=== PATIENT | female | born 1970 | race Caucasian/White ===

== ENCOUNTER 2016-10-10 03:42 | Emergency (ER) | payer OTHER ==
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
--- NOTE | 2016-10-10 04:56 | ED ORDER SUMMARY ---
..... Patient: TRACEY LACY OrderSheet [facility] VisitID: [id number] [place] [address] 46y, F Registration Date/Time: 10/10/2016 ORDER SHEET Weight: 68.0 kg (stated) Allergies: No Known Drug Allergy GENERAL ORDERS: UA-Culture if indicated Urgent (03:54 10/10/2016 Sheila ROMERO) (Ack 3:57 ALawrence ER Tech1) (4:36 ALawrence ER Tech1) Urine Urgent (03:54 10/10/2016 Sheila ROMERO) (Ack 3:57 ALawrence ER Tech1) (4:36 ALawrence ER Tech1) Urine Drug Screen Urgent (03:54 10/10/2016 Sheila ROMERO) (Ack 3:57 ALawrence ER Tech1) (4:36 ALawrence ER Tech1) CBC w Diff Urgent (03:54 10/10/2016 Sheila ROMERO) (Ack 3:57 ALawrence ER Tech1) (4:11 CHernandez R.N.) CMP Urgent (03:54 10/10/2016 Sheila ROMERO) (Ack 3:57 ALawrence ER Tech1) (4:11 CHernandez R.N.) Ethyl Alcohol Urgent (03:54 10/10/2016 Sheila ROMERO) (Ack 3:57 ALawrence ER Tech1) (4:28 HSoule) CT Head wo Cont Urgent (04:29 10/10/2016 Sheila ROMERO) (Ack 4:33 ALawrence ER Tech1) (4:56 GUnger) MEDICATION ORDERS: Aspirin EC PO 325 mg (Do not crush or chew, NOW) (04:51 10/10/2016 Sheila ROMERO) (Ack 4:56 HSoule) (5:12 HSoule) IV FLUIDS: IV Saline Lock (03:54 10/10/2016 Sheila ROMERO) (3:55 HSoule) ORDER SHEET NOTES: [Electronically signed by Cindy Richard (05:22 10/10/2016)] [Electronically signed by Lizzy Higgins MD (16:09 10/21/2016)] [Electronically locked/signed by Cindy Richard (05:22 10/10/2016)]
--- NOTE | 2016-10-10 04:56 | ED ORDER SUMMARY ---
..... Patient: TRACEY LACY OrderSheet [facility] VisitID: [id number] [place] [address] 46y, F Registration Date/Time: 10/10/2016 ORDER SHEET Weight: 68.0 kg (stated) Allergies: No Known Drug Allergy GENERAL ORDERS: UA-Culture if indicated Urgent (03:54 10/10/2016 Sheila ROMERO) (Ack 3:57 ALawrence ER Tech1) (4:36 ALawrence ER Tech1) Urine Urgent (03:54 10/10/2016 Sheila ROMERO) (Ack 3:57 ALawrence ER Tech1) (4:36 ALawrence ER Tech1) Urine Drug Screen Urgent (03:54 10/10/2016 Sheila ROMERO) (Ack 3:57 ALawrence ER Tech1) (4:36 ALawrence ER Tech1) CBC w Diff Urgent (03:54 10/10/2016 Sheila ROMERO) (Ack 3:57 ALawrence ER Tech1) (4:11 CHernandez R.N.) CMP Urgent (03:54 10/10/2016 Sheila ROMERO) (Ack 3:57 ALawrence ER Tech1) (4:11 CHernandez R.N.) Ethyl Alcohol Urgent (03:54 10/10/2016 Sheila ROMEOR) (Ack 3:57 ALawrence ER Tech1) (4:28 HSoule) CT Head wo Cont Urgent (04:29 10/10/2016 Sheila ROMERO) (Ack 4:33 ALawrence ER Tech1) (4:56 GUnger) MEDICATION ORDERS: Aspirin EC PO 325 mg (Do not crush or chew, NOW) (04:51 10/10/2016 Sheila ROMERO) (Ack 4:56 HSoule) (5:12 HSoule) IV FLUIDS: IV Saline Lock (03:54 10/10/2016 Sheila ROMERO) (3:55 HSoule) ORDER SHEET NOTES: [Electronically signed by Cindy Richard (05:22 10/10/2016)] [Electronically signed by Lizzy Higgins MD (16:09 10/21/2016)] [Electronically locked/signed by Cindy Richard (05:22 10/10/2016)]
--- NOTE | 2016-10-10 08:17 | DIAGNOSTIC IMAGING REPORT ---
PROCEDURE: CT HEAD WITHOUT CONTRAST INDICATION: MENTAL STATUS CHANGE TECHNIQUE: Noncontrast axial images with sagittal and coronal reformations. COMPARISON: None. FINDINGS: Prior right frontal temporal parietal craniotomy. Sulci and ventricular system are normal. Small area of right frontal encephalomalacia. There is no acute CVA, hemorrhage, mass or midline shift. 2 cm left frontal osteoma. Mastoids are clear. IMPRESSION: 1. No acute intracranial abnormality 2. Prior right frontal temporal parietal craniotomy 3. Small area of right frontal encephalomalacia 4. Left frontal osteoma 5. Preliminary results submitted by Dr. Leon, [facility] radiology.
--- NOTE | 2016-10-21 16:09 | ED MAR SUMMARY ---
..... Medication Administration Record [facility] [address] [place] [address] Patient: TRACEY LACY Visit ID: [id number] 46y, F Weight: 68.0 kg Height/Length: 63 in BMI: 26.6 ALLERGIES: No Known Drug Allergy Given 05:02 10/10/2016 Cindy Richard, Medication Administered: ASPIRIN EC [PO] (ASPIRIN), Dose: 325 mg Tablets PO. Medication Ordered: Aspirin EC PO 325 mg (Do not crush or chew, NOW).
--- NOTE | 2016-10-21 16:09 | ED MAR SUMMARY ---
..... Medication Administration Record [facility] [address] [place] [address] Patient: TRACEY LACY Visit ID: [id number] 46y, F Weight: 68.0 kg Height/Length: 63 in BMI: 26.6 ALLERGIES: No Known Drug Allergy Given 05:02 10/10/2016 Cindy Richard, Medication Administered: ASPIRIN EC [PO] (ASPIRIN), Dose: 325 mg Tablets PO. Medication Ordered: Aspirin EC PO 325 mg (Do not crush or chew, NOW).
--- NOTE | 2016-10-21 16:09 | ED DISCHARGE INSTRUCTIONS ---
Patient: TRACEY LACY General Instructions [facility] VisitID: [id number] [place] [address] 46y, F Registration Date/Time: 10/10/2016 Acute mental status change with confusion. INSTRUCTIONS (Your labs and CT scan looked good. There is no evidence of a stroke tonight.). Warnings: GENERAL WARNINGS: Return or contact your physician immediately if your condition worsens or changes unexpectedly, if not improving as expected, or if other problems arise. Follow-up: Follow up with doctor as needed. Understanding of the discharge instructions verbalized by patient. ADDITIONAL INFORMATION Confusion Confusion is a change in a persons ability to think clearly. There may be trouble recognizing familiar people and places, or knowing what day it is. Memory, judgement and decision-making may also be affected. In severe cases there may be limited or no response to verbal commands. Confusion may occur suddenly or develop gradually over time. There are many injuries and medical conditions that can cause this problem. These include brain injury, side effect of medication, intoxication, withdrawal from drugs, infection, stroke, dementia,mental illness and other causes. The exam and testing today did not show the cause of this problem. Further testing will be needed. Specific treatment and hope for recovery depend on the cause of this symptom. Home Care: Be sure someone is with the confused person at all times. He/she should not be left alone or unsupervised. Keep medicines (prescription and [id number]) in a secure place, under the caregivers control. A person with confusion should not be allowed to take their own medicines.This needs to be supervised by the caregiver. Ways to help a person with confusion: Activities:Establish a daily routine. Change can be a source of stress for someone with confusion. Make a time schedule for common tasks such as: bathing, dressing, taking medicines, meals, going for walks, shopping, naps and bed time. Communication:Speak slowly and clearly with a gentle tone of voice. Use short simple words and sentences. Ask one question at a time. Do not interrupt, criticize or argue. Be calm and supportive. Use friendly facial expressions. Use pointing and touching to help communicate. If there has been loss of long-term memory, do not ask questions about past events. This would only cause frustration for the person. Behavioral tips:Use lists, signs, family photos, clocks and calendars as memory aids. Label cabinets and drawers. Try to distract, not confront, the patient. When he/she becomes frustrated or upset, redirect his/her attention to eating or some other activity of interest. Medical-Legal tips: If this proves to be a permanent condition, talk to your doctor and/or director career services about getting a Power of Claim Auditor for health care and for financial decisions. It is best to do this while the person can still sign legal documents and make his/jackson own legal decisions. Otherwise, a court order will be required. Follow-Up with the patients doctor or as advised by our staff for further testing. Get Prompt Medical Attention if any of the following occur: Frequent falling Refusal to eat or drink Violent behavior or behavior becomes too difficult to manage at home Increased drowsiness, or failure to respond normally Increasing headache, nausea or repeated vomiting Numbness or weakness of the face, one arm or one leg Slurred speech, trouble speaking, walking or seeing Fainting spell, dizziness or seizure Unexplained fever over 100.4 F (38.0 C) oral You have been given the following additional information: Confusion (Electronically signed by Lizzy Higgins MD 10/21/2016 16:09)
--- NOTE | 2016-10-21 16:09 | ED MED RECONCILIATION SUMMARY ---
Patient: TRACEY LACY Medication Reconciliation Report [facility] VisitID: [id number] [address] [place] [address] 46y, F Registration Date/Time: 10/10/2016 Weight: 68.0 kg Height/Length: 63 in. BMI: 26.6 ALLERGIES: No Known Drug Allergy The patient's Home Medications are listed below: NONE. The source(s) of the original Home Medication information: patient The following Medications were given to the patient in the Emergency Department: Aspirin EC [PO] PO 325 mg, administered: 10/10/2016 5:02:00 AM The following Medications were prescribed to the patient: None.
--- NOTE | 2016-10-21 16:09 | ED DISCHARGE INSTRUCTIONS ---
Patient: TRACEY LACY General Instructions [facility] VisitID: [id number] [place] [address] 46y, F Registration Date/Time: 10/10/2016 Acute mental status change with confusion. INSTRUCTIONS (Your labs and CT scan looked good. There is no evidence of a stroke tonight.). Warnings: GENERAL WARNINGS: Return or contact your physician immediately if your condition worsens or changes unexpectedly, if not improving as expected, or if other problems arise. Follow-up: Follow up with doctor as needed. Understanding of the discharge instructions verbalized by patient. ADDITIONAL INFORMATION Confusion Confusion is a change in a persons ability to think clearly. There may be trouble recognizing familiar people and places, or knowing what day it is. Memory, judgement and decision-making may also be affected. In severe cases there may be limited or no response to verbal commands. Confusion may occur suddenly or develop gradually over time. There are many injuries and medical conditions that can cause this problem. These include brain injury, side effect of medication, intoxication, withdrawal from drugs, infection, stroke, dementia,mental illness and other causes. The exam and testing today did not show the cause of this problem. Further testing will be needed. Specific treatment and hope for recovery depend on the cause of this symptom. Home Care: Be sure someone is with the confused person at all times. He/she should not be left alone or unsupervised. Keep medicines (prescription and [id number]) in a secure place, under the caregivers control. A person with confusion should not be allowed to take their own medicines.This needs to be supervised by the caregiver. Ways to help a person with confusion: Activities:Establish a daily routine. Change can be a source of stress for someone with confusion. Make a time schedule for common tasks such as: bathing, dressing, taking medicines, meals, going for walks, shopping, naps and bed time. Communication:Speak slowly and clearly with a gentle tone of voice. Use short simple words and sentences. Ask one question at a time. Do not interrupt, criticize or argue. Be calm and supportive. Use friendly facial expressions. Use pointing and touching to help communicate. If there has been loss of long-term memory, do not ask questions about past events. This would only cause frustration for the person. Behavioral tips:Use lists, signs, family photos, clocks and calendars as memory aids. Label cabinets and drawers. Try to distract, not confront, the patient. When he/she becomes frustrated or upset, redirect his/her attention to eating or some other activity of interest. Medical-Legal tips: If this proves to be a permanent condition, talk to your doctor and/or leather toggler about getting a Power of Glass Blowing Lathe Operator for health care and for financial decisions. It is best to do this while the person can still sign legal documents and make his/jackson own legal decisions. Otherwise, a court order will be required. Follow-Up with the patients doctor or as advised by our staff for further testing. Get Prompt Medical Attention if any of the following occur: Frequent falling Refusal to eat or drink Violent behavior or behavior becomes too difficult to manage at home Increased drowsiness, or failure to respond normally Increasing headache, nausea or repeated vomiting Numbness or weakness of the face, one arm or one leg Slurred speech, trouble speaking, walking or seeing Fainting spell, dizziness or seizure Unexplained fever over 100.4 F (38.0 C) oral You have been given the following additional information: Confusion (Electronically signed by Lizzy Higgins MD 10/21/2016 16:09)
--- NOTE | 2016-10-21 16:09 | ED MED RECONCILIATION SUMMARY ---
Patient: TRACEY ALCY Medication Reconciliation Report [facility] VisitID: [id number] [address] [place] [address] 46y, F Registration Date/Time: 10/10/2016 Weight: 68.0 kg Height/Length: 63 in. BMI: 26.6 ALLERGIES: No Known Drug Allergy The patient's Home Medications are listed below: NONE. The source(s) of the original Home Medication information: patient The following Medications were given to the patient in the Emergency Department: Aspirin EC [PO] PO 325 mg, administered: 10/10/2016 5:02:00 AM The following Medications were prescribed to the patient: None.
== END 2016-10-10 05:20 | disposition home or self-care (01) ==
LOC: ED SRH 03:42
DX: R41.82 Altered mental status, unspecified (principal); R41.0 Disorientation, unspecified
CPT/HCPCS: 90004; 90100; 92010; 92760; 92761; 92762; 92763; 92764; 92765; 92766; 92767; 93070; 95059